=== PATIENT | male | born 1985 | race African-American/Black ===

== ENCOUNTER 2018-01-16 03:14 | Emergency (ER) | payer SELFPAY ==
[~2018-01-16] VITALS: Ht 190.5 cm; Wt 96.9 kg
[2018-01-16 03:22] VITALS: Ht 190.5 cm; Wt 96.9 kg
[2018-01-16] MEDS ORDERED: LORAZEPAM 1 MG TAB SL STA (03:32)
--- NOTE | 2018-01-16 03:33 | EMERGENCY ROOM VISIT NOTE ---
History Report prepared by Mack: Yg Puga Under the Supervision of: Lavern GaonaO. First contact with patient: 03:22 Chief Complaint: OVERDOSE (ACCIDENTAL) Stated Complaint: DRUG AND ALCOHOL History of Present Illness The patient is a 32 year old male who presents to the Emergency Room brought in by EMS with complaints of persistent tremors secondary to a drug overdose 2300 last night. The patient is hearing impaired. He states that he can hear a little bit. He is not sure what happened. He states this is the first time taking synthetic marijuana, which he reports taking at 2300. He states that he drank a little bit of alcohol and then used the rest to cook with. He notes the tremors in his hands are new. He reports tingling and pain in his knees. He denies any history of heart or lung problems. He has a history of anxiety and depression. 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 He states that he is from [place]. Per EMS, the patient is repetitively stating that he needs to apologize to his principal and seems to be reliving his childhood. Per friend, the patient and she consumed synthetic marijuana and alcohol tonight. She states that this was their first time consuming the synthetic marijuana. She seems very concerned for his health. HPI is limited secondary to drug- induced altered mental status and deafness. Source of History: patient, friend, EMS History Limited By: AMS, other (deafness) Onset: 2300 last night Position: arm (bilateral) Quality: other (tremors) Timing: other (persistent) Note: Notes drug use and alcohol use. Notes pain and tingling in knees. Review of Systems ROS is limited secondary to drug-induced altered mental status and deafness. Past Medical & Surgical Medical Problems: (1) Hearing impairment (2) Mass removed from left hand Surgical Problems: (1) H/O wisdom tooth extraction Family History Cancer Diabetes mellitus Hypertension Social History Smoking Status: Never Smoker Smokeless Tobacco Use: No Alcohol Use: occasionally Drug Use: other (synthetic marijuana) Marital Status: single Housing Status: lives alone Occupation Status: employed Current/Historical Medications No Active Prescriptions or Reported Meds Allergies Coded Allergies: No Known Allergies (Unverified , 01/16/18) Physical Exam Vital Signs Date Time Temp Pulse Resp B/P (MAP) Pulse Ox O2 Delivery O2 Flow Rate FiO2 01/16/18 05:15 101 16 135/97 95 Room Air 01/16/18 03:23 126 01/16/18 03:22 36.4 131 30 173/115 98 Room Air Physical Exam General: Tremulous and hyperverbal. HEENT: Head - normocephalic and atraumatic Pupils are equal, round, and reactive to light. Extraocular eye muscles are intact, and sclera are anicteric. Nose - moist nasal mucosa without discharge. Mouth - moist buccal mucosa. Oropharynx is nonerythematous and there is no tonsillar exudate or edema noted. Neck: Supple; no JVD, nuchal rigidity, cervical lymphadenopathy. Heart: Tachycardic rate and regular rhythm. There is a normal S1 and S2 with no murmurs, clicks, or gallops appreciated. Lungs: Clear to auscultation bilaterally with no wheezes, rales, or rhonchi. Abdomen: Soft, completely nontender, nondistended, with good bowel sounds. There are no palpable pulsatile masses or hepatosplenomegaly. There is no guarding, rigidity, or rebound noted. Extremities: No evidence of cyanosis, clubbing, or edema. There are easily palpable peripheral pulses. Skin: warm with good turgor and no rashes. Slightly diaphoretic. Medical Decision & Procedures Medications Administered Medications (Trade) Dose Ordered Sig/Aby Route Start Time Stop Time Status Last Admin Dose Admin Lorazepam (Ativan Tab) 2 mg NOW STAT SL 01/16/18 03:32 01/16/18 03:33 DC 01/16/18 03:43 2 MG Procedure 0332: Ordered Ativan 2 mg SL ED Course 0324: Past medical records reviewed. The patient was evaluated in room B6. A complete history and physical exam was performed. The patient was observed on the residential monitor and pulse oximeter. 0332: Ordered Ativan 2 mg SL 0403: I reassessed the patient at this time. His heart rate has decreased a little bit. 0437: I reassessed the patient at this time. He is feeling better. His tremors have improved. 0518: I reassessed the patient at this time. Tremors have resolved. His heart rate and blood pressure are both down. I discussed the results and treatment plan with the patient. I answered all pertaining questions that he had. He expressed understanding and verbalized agreement. The patient will be discharged home. Medical Decision The patient is a 32 year old male who presents to the ED with arm tremors secondary to drug overdose. Differential diagnosis includes drug overdose and anxiety. This is a 32-year-old male patient who used synthetic marijuana for the first time tonight along with some alcohol. He presents to the emergency department with significant tremors and babbling speech. It seems that the patient is having an overdose from the drugs that he used. He denies ever using synthetic marijuana before. He has had no previous adverse reactions to medications or drugs in the past. Once the patient was able to rest after receiving sublingual Ativan, patient's heart rate and blood pressure normalized and he was feeling much better. The tremors resolved. He was encouraged to avoid using synthetic marijuana in the future. Medication Reconcilliation Current Medication List: was personally reviewed by me Blood Pressure Screening Patient's blood pressure: Elevated blood pressure Blood pressure disposition: Elevated BP felt to be situational Impression Primary Impression: Drug overdose Scribe Attestation The scribe's documentation has been prepared under my direction and personally reviewed by me in its entirety. I confirm that the note above accurately reflects all work, treatment, procedures, and medical decision making performed by me. Departure Information Dispostion Home / Self-Care Prescriptions No Active Prescriptions or Reported Meds Referrals [facility] Forms HOME CARE DOCUMENTATION FORM, IMPORTANT VISIT INFORMATION, WORK / SCHOOL INSTRUCTIONS Patient Instructions My [facility] Additional Instructions Avoid using synthetic marijuana Rest. Keep yourself well-hydrated. Use tylenol for headache Problem Qualifiers Primary Impression: Drug overdose Encounter type: initial encounter Injury intent: accidental or unintentional Qualified Codes: T50.901A - Poisoning by unspecified drugs, medicaments and biological substances, accidental (unintentional), initial encounter
[2018-01-16 05:53] VITALS: BP 135/97; PULSE 101; TEMP 36.4; O2SAT 95
== END 2018-01-16 05:54 | disposition home or self-care (01) ==
LOC: EDBD 03:14 → C.EDB 03:15
DX: T40.901A Poisoning by unspecified psychodysleptics [hallucinogens], accidental (unintentional), initial encounter (principal); G25.1 Drug-induced tremor; R47.89 Other speech disturbances; R00.0 Tachycardia, unspecified; H91.90 Unspecified hearing loss, unspecified ear